=== PATIENT | female | born 1995 | race African-American/Black ===

== ENCOUNTER 2018-10-11 09:35 | Emergency (ER) | payer OTHER, SELFPAY ==
[2018-10-11] MEDS ORDERED: methylPREDNISolone Sod Succ/PF 125 MG/2 ML VIAL ONE (09:41)
[2018-10-11] MEDS ORDERED: diphenhydrAMINE 50 MG/ML VIAL ONE (09:41)
[2018-10-11] MEDS ORDERED: Famotidine/PF 20 mg/2ml Vial ONE (09:41)
[2018-10-11] MEDS ORDERED: EPINEPHrine 1 MG/ML AMP ONE (09:46)
== END 2018-10-11 12:53 | disposition home or self-care (01) ==
LOC: ERS 09:35
DX: T78.40XA Allergy, unspecified, initial encounter (principal)
CPT/HCPCS: 96361; 96372; 96374; 96375; J0171; J1200; J2930; S0028

== ENCOUNTER 2024-03-26 17:02 | Emergency (ER) | payer SELFPAY | END 2024-03-26 18:58 | disposition home or self-care (01) | LOC: ERS 17:02 | DX: H60.92 Unspecified otitis externa, left ear (principal) | CPT/HCPCS: 99282 ==